=== PATIENT | male | born 1975 | race African-American/Black ===

== ENCOUNTER 2016-04-16 18:54 | Emergency (ER) | payer OTHER ==
[~2016-04-16] VITALS: Ht 172.7 cm; Wt 94.3 kg
--- NOTE | ~2016-04-16 | EKG ---
[address] [address] ELECTROCARDIOGRAM REPORT Name: CHESTER PEDRO Room #: [facility]P [facility]ITALFr[facility] [id number] Admission: 04/16/16 Attend Phys: Discharge: 04/16/16 Date of : 77 Report #: [id number] THIS REPORT FOR: //name// [facility] ED Test Date: 2016-04-16 Test Time: 19:15:24 Pat Name: CHESTER PEDRO Department: Room: Gender: M Clinical Quality Manager: RAY : 1975 Requested By: Gilbert Gomez Order Number: [id number] MD: Clay Andujar Measurements Intervals [place] Rate: 68 P: 78 ME: 185 QRS: 70 QRSD: 94 T: 66 QT: 367 QTc: 391 Interpretive Statements Sinus rhythm No significant abnormality No previous ECG available for comparison Electronically Signed On 04-17-2016 8:33:13 [employer] by Clay Andujar [email or web address] <ELECTRONICALLY SIGNED> By: Clay Andujar MD, [facility] 04/17/16 0833 [id number] Clay Andujar MD, FACC /EPI
[~2016-04-16 18:54] MED LIST: NORVASC10 MG PO; ZOFRAN ODT4 MG PO; ZOLOFT25 MG PO
[2016-04-16 20:37] VITALS: BP 129/83
[2016-04-16] MEDS ORDERED: KLONOPIN1 MG PO (20:42)
== END 2016-04-16 20:57 | disposition home or self-care (01) ==
LOC: ER 18:54
DX: F41.0 Panic disorder [episodic paroxysmal anxiety] (principal); I10 Essential (primary) hypertension; K21.9 Gastro-esophageal reflux disease without esophagitis; F41.9 Anxiety disorder, unspecified; F17.210 Nicotine dependence, cigarettes, uncomplicated; F12.10 Cannabis abuse, uncomplicated; Z88.8 Allergy status to other drugs, medicaments and biological substances